=== PATIENT | female | born 1995 | race Caucasian/White ===

== ENCOUNTER 2022-08-15 23:49 | Emergency (ER) | payer BC, OTHER ==
[2022-08-15 23:58] VITALS: BP 134/82; PULSE 83; RESP 16; TEMP 98.5; BMI 21.9
[2022-08-16] MEDS ORDERED: ONDANSETRON 4 MG/2 ML VIAL IVPB ONE
[2022-08-16] MEDS ORDERED: ONDANSETRON 4 MG/2 ML VIAL ONE (00:09)
[2022-08-16] MEDS ORDERED: SODIUM CHLORIDE 1,000 ML IV SCH (00:15)
[2022-08-16 01:00] LABS: URINE APPEARANCE CLEAR; URINE BILIRUBIN NEGATIVE (NEGATIVE); URINE COLOR YELLOW; URINE GLUCOSE (UA) NEGATIVE (NEGATIVE); URINE KETONE TRACE (NEGATIVE); URINE LEUK ESTERASE NEGATIVE (NEGATIVE); URINE NITRITE NEGATIVE (NEGATIVE); URINE PROTEIN NEGATIVE (NEGATIVE); URINE UROBILINOGEN 0.2 mg/dL (0.2-1.0)
[2022-08-16] MEDS ORDERED: ONDANSETRON *ODT* 4 MG TABLET SL ONE (01:39)
[2022-08-16] MEDS ORDERED: ONDANSETRON *ODT* 4 MG TABLET ONE (01:41)
== END 2022-08-16 01:45 | disposition home or self-care (01) ==
LOC: FER 23:49
PROC: 3E033GC Introduction of Other Therapeutic Substance into Peripheral Vein, Percutaneous Approach (ICD-10-PCS; principal; 2022-08-15)
DX: O21.0 Mild hyperemesis gravidarum (principal); Z3A.10 10 weeks gestation of pregnancy
CPT/HCPCS: 81003; 99284-25; Q0162

== ENCOUNTER 2022-09-05 19:24 | Emergency (ER) | payer BC, OTHER ==
[2022-09-05 19:40] VITALS: BP 117/71; PULSE 78; RESP 18; TEMP 98.5; BMI 22.6
[2022-09-05] MEDS ORDERED: ONDANSETRON 4 MG/2 ML VIAL IVPB ONE (19:50)
[2022-09-05] MEDS ORDERED: DEXTROSE 5%-LACTATED RINGERS 1,000 ML IV SCH (20:00)
[2022-09-05] MEDS ORDERED: ONDANSETRON 4 MG/2 ML VIAL ONE (20:03)
[2022-09-05] MEDS ORDERED: SODIUM CHLORIDE 1,000 ML IV ONE (21:30)
[2022-09-05 22:01] LABS: EPITHELIAL CELLS FEW /hpf
== END 2022-09-05 22:35 | disposition home or self-care (01) ==
LOC: FER 19:24
PROC: 3E033NZ Introduction of Analgesics, Hypnotics, Sedatives into Peripheral Vein, Percutaneous Approach (ICD-10-PCS; principal; 2022-09-05)
PROC: 3E0337Z Introduction of Electrolytic and Water Balance Substance into Peripheral Vein, Percutaneous Approach (ICD-10-PCS; 2022-09-05)
DX: O21.1 Hyperemesis gravidarum with metabolic disturbance (principal); Z3A.11 11 weeks gestation of pregnancy
CPT/HCPCS: 81003; 81015; 82962; 99283-25

== ENCOUNTER 2022-09-17 16:15 | Emergency (ER) | payer BC, OTHER ==
[2022-09-17 16:33] VITALS: BP 114/72; PULSE 95; RESP 16; TEMP 98.6; BMI 22.6
== END 2022-09-17 17:02 | disposition home or self-care (01) ==
LOC: FER 16:15
DX: R51.9 Headache, unspecified (principal); R05.9 Cough, unspecified; R09.81 Nasal congestion
CPT/HCPCS: 0241U-QW; 99283-25